=== PATIENT | male | born 1965 | race Hispanic/Latino ===

== ENCOUNTER → 2016-12-27 20:18 | Emergency (ER) | payer MEDICAID, OTHER ==
[2016-12-27 20:18] VITALS: BMI 20.9
== END | disposition left against medical advice (07) ==
LOC: C.ER 20:18
DX: R10.9 Unspecified abdominal pain (principal); Z02.9 Encounter for administrative examinations, unspecified

== ENCOUNTER 2017-01-25 14:27 | Observation (INO) | payer MEDICAID ==
[2017-01-25 14:27] VITALS: BMI 20.9
--- NOTE | 2017-01-25 15:40 | C.PDOC ---
History Of Present Illness 51 y/o male brought in by EMS presents to the ED with alcohol intoxication in public. Pt has no physical complaints at this time. Time Seen by Provider: 01/25/17 14:47 Chief Complaint (Nursing): Substance Abuse History Per: Patient Modifying Factor(s): Alcohol Severity: Mild Involuntary Hold By: None Recent travel outside of the [place]: No Past Medical History Reviewed: Historical Data, Nursing Documentation, Vital Signs - Medical History PMH: Depression, HTN - [facility] Procedures ALCOHOL DETOXIFICATION (11/09/14) DETOXIFICATION SERVICES FOR SUBSTANCE ABUSE TREATMENT (03/18/16) TETANUS TOXOID ADMINIST (10/11/13) Family History: States: Unknown Family Hx - Social History Hx Tobacco Use: Yes Hx Alcohol Use: Yes Hx Substance Use: No - Immunization History Hx Tetanus Toxoid Vaccination: No (10/11/2013) Review Of Systems Constitutional: Negative for: Fever Cardiovascular: Negative for: Chest Pain Respiratory: Negative for: Shortness of Breath Gastrointestinal: Negative for: Vomiting Neurological: Negative for: Headache Physical Exam - Physical Exam Appears: Non-toxic, No Acute Distress Skin: Warm, Dry, No Rash Head: Atraumatic, Normacephalic Nose: Normal Neck: Normal ROM, Supple Chest: Symmetrical Cardiovascular: Rhythm Regular, No Murmur Respiratory: Normal Breath Sounds, No Rales, No Rhonchi, No Wheezing Gastrointestinal/Abdominal: Soft, No Tenderness Extremity: Bilateral: Atraumatic Neurological/Psych: Oriented x3 Medical Decision Making Medical Decision Making: Pt progressively more alert At discharge steady gait Disposition - Disposition Disposition: ELOPEMENT - ER ONLY Disposition Time: 17:30 Condition: GOOD - Clinical Impression Clinical Impression: Alcohol abuse - Scribe Statement The provider has reviewed the documentation as recorded by the Krystyna Alvarez Provider Attestation: All medical record entries made by the Krystyna were at my direction and personally dictated by me. I have reviewed the chart and agree that the record accurately reflects my personal performance of the history, physical exam, medical decision making, and the department course for this patient. I have also personally directed, reviewed, and agree with the discharge instructions and disposition.
== END 2017-01-25 17:50 | disposition left against medical advice (07) ==
LOC: C.ER 14:27 → C.9OBSV 14:51
PROVIDERS: ADMIT Emergency Medicine; ATTEND Emergency Medicine
DX: F10.120 Alcohol abuse with intoxication, uncomplicated (principal); I10 Essential (primary) hypertension; Z87.891 Personal history of nicotine dependence; Y90.9 Presence of alcohol in blood, level not specified

== ENCOUNTER 2017-03-19 22:38 | Observation (INO) | payer MEDICAID ==
[2017-03-19 22:39] VITALS: BMI 20.9
--- NOTE | 2017-03-19 23:15 | C.PDOC ---
History Of Present Illness <TatianaShakeel L - Last Filed: 03/20/17 05:35> <EulaliaAntonio Rosa Maria - Last Filed: 03/20/17 13:13> Patient is a 51 year old male brought to the ER with acute ETOH intoxication. Patient admits to drinking today and denies any physical complaints at this time. (Antonio Esteban) <TatianaShakeel L - Last Filed: 03/20/17 05:35> History Per: Patient History/Exam Limitations: no limitations Onset/Duration Of Symptoms: Hrs Current Symptoms Are (Timing): Still Present Suicide/Self Injury Attempted (Context): None Modifying Factor(s): Alcohol Associated Symptoms: denies: Depression, Suicidal Thoughts, Suicidal Plan Involuntary Hold By: None Recent travel outside of the [place]: No <Antonio Esteban - Last Filed: 03/20/17 13:13> Time Seen by Provider: 03/19/17 22:40 Chief Complaint (Nursing): Substance Abuse Past Medical History <Shakeel Simpson - Last Filed: 03/20/17 05:35> Reviewed: Historical Data, Nursing Documentation, Vital Signs - Medical History PMH: Depression, HTN Surgical History: No Surg Hx Family History: States: Unknown Family Hx - Social History Hx Tobacco Use: Yes Hx Alcohol Use: Yes Hx Substance Use: No - Immunization History Hx Tetanus Toxoid Vaccination: No (10/11/2013) Hx Influenza Vaccination: No Hx Pneumococcal Vaccination: No <Antonio Esteban - Last Filed: 03/20/17 13:13> Vital Signs: Last Vital Signs Temp 97.8 F 03/20/17 05:09 Pulse 99 H 03/20/17 05:09 Resp 18 03/20/17 05:09 BP 106/72 03/20/17 05:09 Pulse Ox 97 03/20/17 05:09 - [facility] Procedures ALCOHOL DETOXIFICATION (11/09/14) DETOXIFICATION SERVICES FOR SUBSTANCE ABUSE TREATMENT (03/18/16) TETANUS TOXOID ADMINIST (10/11/13) Review Of Systems Constitutional: Negative for: Fever, Chills Gastrointestinal: Negative for: Nausea, Vomiting, Diarrhea Neurological: Positive for: Other (ETOH intoxication) <Antonio Esteban - Last Filed: 03/20/17 13:13> Physical Exam <Shakeel Simpson - Last Filed: 03/20/17 05:35> <Antonio Esteban - Last Filed: 03/20/17 13:13> - Physical Exam Additional Physical Exam Comments: Constitutional: ETOH on breath. Head: Normocephalic. Atraumatic. Eyes: PERRL. ENT: Moist mucous membranes. Neck: Supple. Cardiovascular: Regular rate. Radial pulse 2+ bilaterally. Chest: No tenderness. Respiratory: Clear to auscultation bilaterally. GI: Soft. Nontender. Nondistended. Back: No CVA tenderness. Musculoskeletal: No tenderness or swelling of extremities. Skin: No rash. Neurologic: Alert, no focal deficit. (Antonio Esteban) ED Course And Treatment O2 Sat by Pulse Oximetry: 96 <Antonio Esteban - Last Filed: 03/20/17 13:13> ED OBSERVATION Discharge: Yes <Shakeel Simpson - Last Filed: 03/20/17 05:35> Date of observation admission: 03/19/17 Time of observation admission: 23:20 <Antonio Esteban - Last Filed: 03/20/17 13:13> - Observation admission statement Patient is being placed in observation because:: alcohol intoxication (Antonio Esteban) - Goals of Observation Goals of observation are:: sobriety (Antonio Esteban) - Progress Note Progress Note: 03/19/17 23:21 In no acute distress. Ate sandwich. 03/20/17 00:32 Patient intoxicated, unsteady on feet. Will sign out to ER night team at end of shift pending sobriety. (Antonio Esteban) Disposition - Disposition Disposition Time: 05:36 <Shakeel Simpson - Last Filed: 03/20/17 05:35> <Antonio Esteban - Last Filed: 03/20/17 13:13> - Disposition Disposition: HOME/ ROUTINE Condition: FAIR - Clinical Impression Clinical Impression: Alcohol abuse <Shakeel Simpson - Last Filed: 03/20/17 05:35> - Scribe Statement The provider has reviewed the documentation as recorded by the Scribe <Antonio Esteban - Last Filed: 03/20/17 13:13> - Scribe Statement Sebastian Shearer All medical record entries made by the Scribe were at my direction and personally dictated by me. I have reviewed the chart and agree that the record accurately reflects my personal performance of the history, physical exam, medical decision making, and the department course for this patient. I have also personally directed, reviewed, and agree with the discharge instructions and disposition. (Antonio Esteban) Addendum <Shakeel Simpson - Last Filed: 03/20/17 05:35> <Antonio Esteban - Last Filed: 03/20/17 13:13> Addendum: Pt remained stable At dc Ambulatory with steady gait Stable for dc (Shakeel Simpson)
[2017-03-20 05:10] VITALS: BP 106/72; PULSE 99; RESP 18; TEMP 97.8
[2017-03-20 13:13] VITALS: O2SAT 96
== END 2017-03-20 05:36 | disposition home or self-care (01) ==
LOC: C.ER 22:38 → C.9OBSV 23:21
PROVIDERS: ADMIT Student in an Organized Health Care Education/Training Program; ATTEND Student in an Organized Health Care Education/Training Program
DX: F10.120 Alcohol abuse with intoxication, uncomplicated (principal); F32.9 Major depressive disorder, single episode, unspecified; I10 Essential (primary) hypertension; Z72.0 Tobacco use
CPT/HCPCS: 99283; G0378

== ENCOUNTER 2017-04-11 19:39 | Observation (INO) | payer MEDICAID ==
[2017-04-11 19:39] VITALS: BMI 20.9
[2017-04-11 20:04] VITALS: RESP 18; TEMP 98.2
--- NOTE | 2017-04-11 20:10 | C.PDOC ---
History Of Present Illness Patient was brought to the ED by EMS after being found sleeping outside intoxicated. Patient has EtOH on breath and denies any suicidal ideations, homicidal ideations, or physical complaints at this time. Time Seen by Provider: 04/11/17 19:53 Chief Complaint (Nursing): Substance Abuse History Per: Patient History/Exam Limitations: no limitations Onset/Duration Of Symptoms: Hrs Current Symptoms Are (Timing): Still Present Suicide/Self Injury Attempted (Context): None Severity: None Pain Scale Rating Of: 0 Associated Symptoms: denies: Suicidal Thoughts, Suicidal Plan Involuntary Hold By: None Recent travel outside of the [place]: No Additional History Per: EMS Past Medical History Reviewed: Historical Data, Nursing Documentation, Vital Signs Vital Signs: Last Vital Signs Temp 98.2 F 04/11/17 22:20 Pulse 84 04/11/17 22:20 Resp 18 04/11/17 22:20 BP 116/69 04/11/17 22:20 Pulse Ox 98 04/11/17 22:46 - Medical History PMH: Depression, HTN - [facility] Procedures ALCOHOL DETOXIFICATION (11/09/14) DETOXIFICATION SERVICES FOR SUBSTANCE ABUSE TREATMENT (03/18/16) TETANUS TOXOID ADMINIST (10/11/13) Family History: States: Unknown Family Hx - Social History Hx Tobacco Use: Yes Hx Alcohol Use: Yes Hx Substance Use: No - Immunization History Hx Tetanus Toxoid Vaccination: No (10/11/2013) Hx Influenza Vaccination: No Hx Pneumococcal Vaccination: No Review Of Systems Constitutional: Negative for: Fever, Chills Cardiovascular: Negative for: Chest Pain, Palpitations Respiratory: Negative for: Cough, Shortness of Breath Gastrointestinal: Negative for: Nausea, Vomiting, Abdominal Pain, Diarrhea Psych: Negative for: Suicidal ideation Physical Exam - Physical Exam Appears: Non-toxic, No Acute Distress Skin: Warm, Dry Head: Atraumatic Eye(s): bilateral: Normal Inspection Oral Mucosa: Moist Neck: Supple Chest: Symmetrical, No Deformity Cardiovascular: Rhythm Regular Respiratory: No Rales, No Rhonchi, No Wheezing Gastrointestinal/Abdominal: Soft, No Tenderness, No Distention, No Guarding, No Rebound Extremity: Normal ROM, No Tenderness Neurological/Psych: Oriented x3 ED Course And Treatment O2 Sat by Pulse Oximetry: 98 (room air ) ED OBSERVATION Discharge: Yes Date of observation admission: 04/11/17 Time of observation admission: 19:30 - Observation admission statement Patient is being placed in observation because:: intoxicated. - Goals of Observation Goals of observation are:: sobriety. - Progress Note Progress Note: 04/11/17 19:30 Patient is resting comfortably and is in no acute distress. Disposition Counseled Patient/Family Regarding: Studies Performed, Diagnosis - Disposition Disposition: HOME/ ROUTINE Disposition Time: 00:16 Condition: FAIR - Clinical Impression Clinical Impression: Alcohol intoxication - Scribe Statement The provider has reviewed the documentation as recorded by the Julio Cesaribchastity Jimenes All medical record entries made by the Krystyna were at my direction and personally dictated by me. I have reviewed the chart and agree that the record accurately reflects my personal performance of the history, physical exam, medical decision making, and the department course for this patient. I have also personally directed, reviewed, and agree with the discharge instructions and disposition.
[2017-04-11 22:21] VITALS: BP 116/69; PULSE 84
[2017-04-11 22:46] VITALS: O2SAT 98
== END 2017-04-12 00:16 | disposition home or self-care (01) ==
LOC: C.ER 19:39 → C.9OBSV 21:54
PROVIDERS: ADMIT Emergency Medicine; ATTEND Emergency Medicine
DX: F10.129 Alcohol abuse with intoxication, unspecified (principal); I10 Essential (primary) hypertension; Z87.891 Personal history of nicotine dependence

== ENCOUNTER 2017-04-13 11:56 | Emergency (ER) | payer MEDICAID ==
[2017-04-13 11:56] VITALS: BMI 20.9
[2017-04-13 12:06] VITALS: BP 141/95; PULSE 98; RESP 18; TEMP 98.7; O2SAT 95
--- NOTE | 2017-04-13 14:06 | C.PDOC ---
History Of Present Illness 51 y/o male BIBA for public intoxication. Denies any other known medical history or medical complaints, "I don't know why I am here". Denies headache, nausea, vomiting. Time Seen by Provider: 04/13/17 13:20 Chief Complaint (Nursing): Substance Abuse History Per: Patient History/Exam Limitations: no limitations Current Symptoms Are (Timing): Still Present Suicide/Self Injury Attempted (Context): None Modifying Factor(s): Alcohol Recent travel outside of the [place]: No Past Medical History Reviewed: Historical Data, Nursing Documentation, Vital Signs Vital Signs: Last Vital Signs Temp 98.7 F 04/13/17 12:05 Pulse 98 H 04/13/17 12:05 Resp 18 04/13/17 13:39 BP 141/95 H 04/13/17 12:05 Pulse Ox 95 04/13/17 14:06 - Medical History PMH: Depression, HTN - [facility] Procedures ALCOHOL DETOXIFICATION (11/09/14) DETOXIFICATION SERVICES FOR SUBSTANCE ABUSE TREATMENT (03/18/16) TETANUS TOXOID ADMINIST (10/11/13) Family History: States: Unknown Family Hx - Social History Hx Tobacco Use: Yes Hx Alcohol Use: Yes Hx Substance Use: No - Immunization History Hx Tetanus Toxoid Vaccination: No (10/11/2013) Hx Influenza Vaccination: No Hx Pneumococcal Vaccination: No Review Of Systems Except As Marked, All Systems Reviewed And Found Negative. Constitutional: Negative for: Fever, Chills Cardiovascular: Negative for: Chest Pain Respiratory: Negative for: Cough, Shortness of Breath Gastrointestinal: Negative for: Vomiting Skin: Negative for: Rash Neurological: Negative for: Headache, Dizziness Physical Exam - Physical Exam Appears: Non-toxic, Unkempt (dissheveled ), Other (no evidence of trauma) Skin: Warm, Dry Head: Atraumatic, Normacephalic Chest: Symmetrical Cardiovascular: Rhythm Regular Respiratory: Normal Breath Sounds, No Rales, No Rhonchi, No Wheezing Gastrointestinal/Abdominal: Soft, No Tenderness, No Guarding, No Rebound Back: Normal Inspection Extremity: Normal ROM, Capillary Refill (< 2 sec.) Extremity: Bilateral: Atraumatic Neurological/Psych: Oriented x3, Normal Speech, Normal Cognition Gait: Steady ED Course And Treatment O2 Sat by Pulse Oximetry: 95 (RA) Pulse Ox Interpretation: Normal Progress Note: Patient eloped prior to being discharged. Disposition - Disposition Disposition: ELOPEMENT - ER ONLY Disposition Time: 13:30 Condition: GOOD - POA Present On Arrival: None - Clinical Impression Clinical Impression: Alcohol intoxication - Scribe Statement The provider has reviewed the documentation as recorded by the Krystyna Waddell Provider Attestation: All medical record entries made by the Krystyna were at my direction and personally dictated by me. I have reviewed the chart and agree that the record accurately reflects my personal performance of the history, physical exam, medical decision making, and the department course for this patient. I have also personally directed, reviewed, and agree with the discharge instructions and disposition.
== END 2017-04-13 13:39 | disposition left against medical advice (07) ==
LOC: C.ER 11:56
DX: F10.120 Alcohol abuse with intoxication, uncomplicated (principal); Y90.9 Presence of alcohol in blood, level not specified

== ENCOUNTER 2017-04-13 22:14 | Observation (INO) | payer MEDICAID ==
[2017-04-13 22:14] VITALS: BMI 20.9
--- NOTE | 2017-04-13 22:22 | C.PDOC ---
History Of Present Illness Patient was brought to the ED by EMS after being found sleeping outside intoxicated. Patient has EtOH on breath and denies any suicidal ideations, homicidal ideations, or physical complaints at this time. Time Seen by Provider: 04/13/17 22:21 History Per: Patient History/Exam Limitations: no limitations Onset/Duration Of Symptoms: Hrs Current Symptoms Are (Timing): Still Present Suicide/Self Injury Attempted (Context): None Modifying Factor(s): Alcohol Severity: None Pain Scale Rating Of: 0 Associated Symptoms: denies: Depression, Suicidal Thoughts, Suicidal Plan Involuntary Hold By: None Recent travel outside of the [place]: No Past Medical History Reviewed: Historical Data, Nursing Documentation, Vital Signs Vital Signs: Last Vital Signs Temp 98.5 F 04/13/17 22:22 Pulse 79 04/14/17 03:27 Resp 18 04/14/17 03:27 BP 137/95 H 04/14/17 03:27 Pulse Ox 96 04/14/17 03:27 - Medical History PMH: Depression, HTN Surgical History: No Surg Hx - [facility] Procedures ALCOHOL DETOXIFICATION (11/09/14) DETOXIFICATION SERVICES FOR SUBSTANCE ABUSE TREATMENT (03/18/16) TETANUS TOXOID ADMINIST (10/11/13) Family History: States: No Known Family Hx - Social History Hx Tobacco Use: Yes Hx Alcohol Use: Yes Hx Substance Use: No - Immunization History Hx Tetanus Toxoid Vaccination: No (10/11/2013) Hx Influenza Vaccination: No Hx Pneumococcal Vaccination: No Review Of Systems Constitutional: Negative for: Fever, Chills Gastrointestinal: Negative for: Nausea, Vomiting Psych: Negative for: Suicidal ideation Physical Exam - Physical Exam Appears: Non-toxic, Other (ETOH on breath) Skin: Warm, Dry Oral Mucosa: Moist Chest: Symmetrical, No Tenderness Cardiovascular: Rhythm Regular, No Murmur Respiratory: No Rales, No Rhonchi, No Other Gastrointestinal/Abdominal: Soft, No Tenderness Neurological/Psych: Oriented x3 ED Course And Treatment O2 Sat by Pulse Oximetry: 96 Pulse Ox Interpretation: Normal Reevaluation Time: 05:23 Reassessment Condition: Improved ED OBSERVATION Discharge: Yes Date of observation admission: 04/13/17 Time of observation admission: 22:23 - Observation admission statement Patient is being placed in observation because:: acute alcohol intoxication - Goals of Observation Goals of observation are:: sobriety - Progress Note Progress Note: 04/13/17 22:24 vitals stable 04/14/17 01:26 arousable, no complaints Disposition Counseled Patient/Family Regarding: Studies Performed, Diagnosis, Need For Followup - Disposition Disposition: HOME/ ROUTINE Disposition Time: 22:22 Condition: FAIR - Clinical Impression Clinical Impression: Alcohol intoxication, Abrasion of scalp - Scribe Statement The provider has reviewed the documentation as recorded by the Scribchastity Shearer All medical record entries made by the Julio Cesaribchastity were at my direction and personally dictated by me. I have reviewed the chart and agree that the record accurately reflects my personal performance of the history, physical exam, medical decision making, and the department course for this patient. I have also personally directed, reviewed, and agree with the discharge instructions and disposition.
[2017-04-13 22:25] VITALS: TEMP 98.5
--- NOTE | 2017-04-13 23:51 | CT ---
EXAM: CT Head Without Intravenous Contrast CLINICAL HISTORY: 51 years old, male; Injury or trauma; Fall; Initial encounter; Abrasion; Head, generalized TECHNIQUE: Axial computed tomography images of the head/brain without intravenous contrast. This CT exam was performed using one or more of the following dose reduction techniques: automated exposure control, adjustment of the mA and/or kV according to patient size, and/or use of iterative reconstruction technique. Coronal and sagittal reformatted images were created and reviewed. COMPARISON: No relevant prior studies available. FINDINGS: Brain: There is moderate prominence of ventricles and sulci, compatible with moderate atrophy. There is no evidence of intracranial hemorrhage. No evidence of acute territorial infarction. There is mild diminished density of the white matter bilaterally, nonspecific in this age group although consistent with mild microangiopathy. No edema. Ventricles: See above. Bones/joints: Unremarkable. No acute fracture. Soft tissues: Unremarkable. Sinuses: Unremarkable as visualized. No acute sinusitis. Mastoid air cells: Unremarkable as visualized. No mastoid effusion. IMPRESSION: 1. No evidence for acute intracranial abnormality or displaced calvarial fracture. 2. Additional incidental and/or chronic findings as described.
[2017-04-14 03:28] VITALS: BP 137/95; PULSE 79; RESP 18; O2SAT 96
== END 2017-04-14 05:24 | disposition home or self-care (01) ==
LOC: C.ER 22:14 → C.9OBSV 23:09
PROVIDERS: ADMIT Emergency Medicine; ATTEND Emergency Medicine
DX: F10.129 Alcohol abuse with intoxication, unspecified (principal); S00.01XA Abrasion of scalp, initial encounter; Z87.891 Personal history of nicotine dependence; I10 Essential (primary) hypertension; W19.XXXA Unspecified fall, initial encounter; Y90.9 Presence of alcohol in blood, level not specified
CPT/HCPCS: 70450; 82948; G0378

== ENCOUNTER 2017-10-07 14:55 | Emergency (ER) | payer SELFPAY ==
[2017-10-07 14:55] VITALS: BMI 20.9
--- NOTE | 2017-10-07 15:27 | C.PDOC ---
History Of Present Illness 52 y/o M BIBEMS with head injury. Patient states he drank alcohol today. Reports pain to back of head but no severe pain. Also complains of pain in the R upper forehead/uatsdin. Denies nausea, vomiting, vision changes, LOC, numbness , or weakness. Patient states had tetanus shot about 2 years ago. Chart review shows tetanus administered here in 2013. Time Seen by Provider: 10/07/17 15:12 Chief Complaint (Nursing): Substance Abuse Past Medical History Vital Signs: Last Vital Signs Temp 96.9 F L 10/07/17 15:02 Pulse 96 H 10/07/17 15:02 Resp 17 10/07/17 15:02 BP Pulse Ox - Medical History PMH: Depression, HTN Denies: Chronic Kidney Disease - [facility] Procedures ALCOHOL DETOXIFICATION (11/09/14) DETOXIFICATION SERVICES FOR SUBSTANCE ABUSE TREATMENT (03/18/16) TETANUS TOXOID ADMINIST (10/11/13) Family History: States: Unknown Family Hx - Social History Hx Tobacco Use: Yes Hx Alcohol Use: Yes Hx Substance Use: No - Immunization History Hx Tetanus Toxoid Vaccination: No (10/11/2013) Hx Influenza Vaccination: No Hx Pneumococcal Vaccination: No Review Of Systems Except As Marked, All Systems Reviewed And Found Negative. Constitutional: Negative for: Fever Cardiovascular: Negative for: Chest Pain Physical Exam - Physical Exam Additional Physical Exam Comments: Constitutional: No acute distress. Head: Normocephalic. Atraumatic. Tenderness to R cheek without laceration or ecchymosis. R parietal scalp hematoma with abrasion overlying without laceration. Eyes: PERRL. ENT: Moist mucous membranes. Neck: Supple. No midline tenderness. Cardiovascular: Regular rate. Radial pulse 2+ bilaterally. Chest: No tenderness. Respiratory: Clear to auscultation bilaterally. GI: Soft. Nontender. Nondistended. Back: No CVA tenderness. No midline tenderness. Musculoskeletal: No tenderness or swelling of extremities. FROM x 4. Skin: No rash. Neurologic: Alert, no focal deficit. EOMI. Denies diplopia. Sensation to light touch intact bilaterally. Denies malocclusion of jaw. Medical Decision Making Medical Decision Making: CT Orbits IMPRESSION: Right tripod fracture with comminuted fractures of the anterior and posterior cruz of the right maxillary sinus and of the right inferior orbital rim as well as comminuted fracture of the right zygomatic arch and mild diastases of the right zygomatic O frontal suture. No intraorbital hemorrhage. CT Head IMPRESSION: Right scalp hematoma and small subcutaneous emphysema. No acute intracranial pathology identified. Incidental findings as above. Patient awake, alert, steady gait, asking to eat. Discussed case with Dr. Garcia working with Dr. Hill with OM[facility] at [facility]. Gave CT report finding, recommends follow up in Oral Facial Surgery clinic at [facility] on Tuesday or Tuesday as walk in. Gave address and CD of images to bring. Disposition - Disposition Disposition: HOME/ ROUTINE Disposition Time: 17:20 Condition: STABLE Additional Instructions: You need to go to the [facility] Clinic which is in [facility]. You should walk into the clinic with your CD with your CT pictures on them. Go there on Tuesday, October 11, or October 12. [facility] [address] 8am to 4pm Instructions: Facial Fracture (ED) Forms: [facility] (Irish) - Clinical Impression Clinical Impression: Facial bones, closed fracture, Facial fracture due to fall
--- NOTE | 2017-10-07 16:06 | CT ---
PROCEDURE: CT HEAD WITHOUT CONTRAST. HISTORY: fall, head injury COMPARISON: Noncontrast head CT performed 04/13/17 TECHNIQUE: Axial computed tomography images were obtained through the head/brain without intravenous contrast. Radiation dose: Total exam DLP = 982.82 mGy-cm. This CT exam was performed using one or more of the following dose reduction techniques: Automated exposure control, adjustment of the mA and/or kV according to patient size, and/or use of iterative reconstruction technique. FINDINGS: HEMORRHAGE: No intracranial hemorrhage. BRAIN: Diffuse atrophy with prominence of the ventricles and sulci noted. No mass effect or edema. Scattered periventricular and subcortical white matter hypodensities, which are nonspecific, but often seen with chronic microvascular ischemic disease. Please note that MRI with diffusion imaging is more sensitive in the detection of acute ischemic event. VENTRICLES: No hydrocephalus. CALVARIUM: Unremarkable. PARANASAL SINUSES: Unremarkable as visualized. No significant inflammatory changes. MASTOID AIR CELLS: Unremarkable as visualized. No inflammatory changes. OTHER FINDINGS: Right scalp hematoma and small subcutaneous emphysema. IMPRESSION: Right scalp hematoma and small subcutaneous emphysema. No acute intracranial pathology identified. Incidental findings as above.
--- NOTE | 2017-10-07 16:35 | CT ---
PROCEDURE: CT MAXILLOFACIAL BONES WITHOUT CONTRAST HISTORY: fall, facial pain COMPARISON: None TECHNIQUE: Contiguous axial CT images of the maxillofacial bones were obtained. Coronal and sagittal reformats were generated. Radiation dose: Total exam DLP = 740.44 mGy-cm. This CT exam was performed using one or more of the following dose reduction techniques: Automated exposure control, adjustment of the mA and/or kV according to patient size, and/or use of iterative reconstruction technique. Total exam DLP = 740.44 mGy-cm. FINDINGS: NASAL BONES: Unremarkable. ORBITS: Fracture of the right inferior orbital rim, comminuted. Fracture anterior and posterior cruz of the right maxillary sinus. Both fractures are comminuted and displaced. There is minimal diastases of the right zygomatic O frontal suture. There is multifocal fracture of the right zygomatic arch. The globes are rounded and symmetric. There is no intraorbital hemorrhage. The optic nerves are symmetric. The extraocular muscles are normal in diameter. PARANASAL SINUSES/ MASTOIDS: Mucosal thickening along lateral wall of right maxillary sinus. MAXILLA: As above MANDIBLE/ TEMPOROMANDIBULAR JOINTS: Unremarkable. SKULL BASE: Unremarkable. TEMPORAL BONES: Middle ears and mastoid grossly unremarkable. OTHER FINDINGS: None. IMPRESSION: Right tripod fracture with comminuted fractures of the anterior and posterior cruz of the right maxillary sinus and of the right inferior orbital rim as well as comminuted fracture of the right zygomatic arch and mild diastases of the right zygomatic O frontal suture. No intraorbital hemorrhage.
[2017-10-07 18:29] VITALS: BP 99/64; PULSE 107; RESP 20; TEMP 98; O2SAT 96
== END 2017-10-07 18:54 | disposition home or self-care (01) ==
LOC: C.ER 14:55
DX: S02.81XA Fracture of other specified skull and facial bones, right side, initial encounter for closed fracture (principal); W18.30XA Fall on same level, unspecified, initial encounter

== ENCOUNTER 2018-03-25 16:17 | Emergency (ER) | payer SELFPAY ==
[2018-03-25 16:17] VITALS: BMI 20.9
[2018-03-25 16:26] VITALS: BP 124/74; PULSE 108; RESP 18; TEMP 98.6; O2SAT 97
--- NOTE | 2018-03-25 17:06 | C.PDOC ---
History Of Present Illness 52 year old male is brought to the ED by EMS for evaluation of public alcohol intoxication for an unknown duration. Patient admits to drinking earlier today. He denies using any other substances and has no complaints at this time. Time Seen by Provider: 03/25/18 16:37 Chief Complaint (Nursing): Substance Abuse History Per: Patient, EMS History/Exam Limitations: intoxication Onset/Duration Of Symptoms: Hrs Current Symptoms Are (Timing): Still Present Suicide/Self Injury Attempted (Context): None Modifying Factor(s): Alcohol Involuntary Hold By: None Recent travel outside of the [place]: No Additional History Per: Patient, EMS Past Medical History Reviewed: Historical Data, Nursing Documentation, Vital Signs Vital Signs: Last Vital Signs Temp 98.6 F 03/25/18 16:22 Pulse 108 H 03/25/18 16:22 Resp 18 03/25/18 16:22 BP 124/74 03/25/18 16:22 Pulse Ox 97 03/25/18 17:11 - Medical History PMH: Depression, HTN Denies: Chronic Kidney Disease Surgical History: No Surg Hx - [facility] Procedures ALCOHOL DETOXIFICATION (11/09/14) DETOXIFICATION SERVICES FOR SUBSTANCE ABUSE TREATMENT (03/18/16) TETANUS TOXOID ADMINIST (10/11/13) Family History: States: Unknown Family Hx - Social History Hx Tobacco Use: Yes Hx Alcohol Use: Yes Hx Substance Use: No - Immunization History Hx Tetanus Toxoid Vaccination: No (10/11/2013) Hx Influenza Vaccination: No Hx Pneumococcal Vaccination: No Review Of Systems Psych: Positive for: Other (EtOH intoxication ) Physical Exam - Physical Exam Appears: Non-toxic, No Acute Distress, Other (visibly intoxicated ) Skin: Normal Color, Warm, Dry, No Other (obvious signs of injury/trauma ) Head: Atraumatic, Normacephalic Eye(s): bilateral: Normal Inspection Oral Mucosa: Moist, Other (alcohol on breath ) Neck: Supple Chest: Symmetrical, No Deformity, No Tenderness Cardiovascular: Rhythm Regular Respiratory: Normal Breath Sounds, No Rales, No Rhonchi, No Wheezing Extremity: Normal ROM, Capillary Refill (less than 2 seconds ) Neurological/Psych: Other (awake, alert, and arousable to touch and verbal stimuli ) ED Course And Treatment O2 Sat by Pulse Oximetry: 97 (on RA) Pulse Ox Interpretation: Normal Medical Decision Making Medical Decision Making: Impression: 52 year old male with alcohol intoxication Progress: Patient observed in ED. He was ambulatory to restroom and then started to smoke in bathroom. Patient escorted out of building. He was alert and oriented and able to ambulate on his own. 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 - Scribe Statement The provider has reviewed the documentation as recorded by the Scribe (Elizabeth Mendieta) All medical record entries made by the Scribe were at my direction and personally dictated by me. I have reviewed the chart and agree that the record accurately reflects my personal performance of the history, physical exam, medical decision making, and the department course for this patient. I have also personally directed, reviewed, and agree with the discharge instructions and disposition.
== END 2018-03-25 17:11 | disposition home or self-care (01) ==
LOC: C.ER 16:17
DX: F10.129 Alcohol abuse with intoxication, unspecified (principal); Y90.9 Presence of alcohol in blood, level not specified

== ENCOUNTER 2018-04-13 00:54 | Emergency (ER) | payer SELFPAY ==
[2018-04-13 00:54] VITALS: BMI 20.9
--- NOTE | 2018-04-13 01:06 | C.PDOC ---
History Of Present Illness Patient brought in via EMS after bring found intoxicated in public. Denies physical complaints at this time. Time Seen by Provider: 04/13/18 01:05 History Per: Patient History/Exam Limitations: no limitations Onset/Duration Of Symptoms: Hrs Current Symptoms Are (Timing): Still Present Suicide/Self Injury Attempted (Context): None Modifying Factor(s): Alcohol Severity: None Pain Scale Rating Of: 0 Associated Symptoms: denies: Depression, Suicidal Thoughts Involuntary Hold By: None Recent travel outside of the [place]: No Past Medical History Reviewed: Historical Data, Nursing Documentation, Vital Signs Vital Signs: Last Vital Signs Temp 97.6 F 04/13/18 01:06 Pulse 81 04/13/18 01:06 Resp 20 04/13/18 01:06 BP 159/98 H 04/13/18 01:06 Pulse Ox 99 04/13/18 01:06 - Medical History PMH: Depression, HTN - [facility] Procedures ALCOHOL DETOXIFICATION (11/09/14) DETOXIFICATION SERVICES FOR SUBSTANCE ABUSE TREATMENT (03/18/16) TETANUS TOXOID ADMINIST (10/11/13) Family History: States: No Known Family Hx - Social History Hx Tobacco Use: Yes Hx Alcohol Use: Yes Hx Substance Use: No - Immunization History Hx Tetanus Toxoid Vaccination: No (10/11/2013) Hx Influenza Vaccination: No Hx Pneumococcal Vaccination: No Review Of Systems Constitutional: Negative for: Fever, Chills Cardiovascular: Negative for: Chest Pain, Palpitations Respiratory: Negative for: Cough, Shortness of Breath Gastrointestinal: Negative for: Nausea, Vomiting Physical Exam - Physical Exam Appears: Non-toxic, Other (ETOH on breath, no sign of injury) Skin: Warm, Dry Head: Normacephalic Oral Mucosa: Moist Chest: Symmetrical, No Tenderness Cardiovascular: Rhythm Regular Respiratory: No Rales, No Rhonchi, No Wheezing Gastrointestinal/Abdominal: Soft, No Tenderness Neurological/Psych: Oriented x3 ED Course And Treatment O2 Sat by Pulse Oximetry: 99 Pulse Ox Interpretation: Normal Disposition Counseled Patient/Family Regarding: Studies Performed, Diagnosis, Need For Followup - Disposition Referrals: [facility] [Outside] Disposition: HOME/ ROUTINE Disposition Time: 01:05 Condition: FAIR Instructions: Alcohol Abuse and Alcoholism (DC) - Clinical Impression Clinical Impression: Alcohol intoxication - Scribe Statement The provider has reviewed the documentation as recorded by the Scribe Sebastian Shearer All medical record entries made by the Julio Cesaribchastity were at my direction and personally dictated by me. I have reviewed the chart and agree that the record accurately reflects my personal performance of the history, physical exam, medical decision making, and the department course for this patient. I have also personally directed, reviewed, and agree with the discharge instructions and disposition.
[2018-04-13 01:09] VITALS: TEMP 97.6; O2SAT 99
[2018-04-13 05:57] VITALS: BP 130/80; PULSE 80; RESP 14
== END 2018-04-13 05:58 | disposition home or self-care (01) ==
LOC: C.ER 00:54
DX: F10.129 Alcohol abuse with intoxication, unspecified (principal)

== ENCOUNTER 2018-08-02 20:56 | Emergency (ER) | payer SELFPAY ==
[2018-08-02 20:56] VITALS: BMI 20.9
[2018-08-02 21:02] VITALS: TEMP 97.5
[2018-08-02] MEDS ORDERED: Folic Acid 1 MG, Thiamine 100 MG, Multivitamin (MVI) 10 ML in Dextrose 5% In Water 1,00... IV ONE (21:19)
--- NOTE | 2018-08-02 21:25 | C.PDOC ---
Addendum entered and electronically signed by Alicia Mckeon MD 08/03/18 05:25: Disposition Counseled Patient/Family Regarding: Studies Performed, Diagnosis, Need For Followup Clinical Impression: Alcohol intoxication Disposition: HOME/ ROUTINE Disposition Time: 00:45 Condition: FAIR Referrals: [facility] [Outside] Stand Alone Forms: [employer] (Ivorian) Addendum entered and electronically signed by Alicia Mckeon MD 08/03/18 01:27: Addendum Addendum: 08/03/18 01:26 pt although saturating in the 98-100% has been having pink froth via his mouth. He does seem to be more awake and alert, but off oxygen desats to the low 80's . Repeat cxr and labs ordered Original Note: History Of Present Illness 53 year old male presents to the ED via EMS after being found intoxicated on the street. Patient is unresponsive to verbal and painful stimuli. Time Seen by Provider: 08/02/18 21:03 Chief Complaint (Nursing): Substance Abuse History Per: EMS History/Exam Limitations: intoxication Past Medical History Reviewed: Historical Data, Nursing Documentation, Vital Signs Vital Signs: Last Vital Signs Temp 97.5 F L 08/02/18 20:58 Pulse 109 H 08/02/18 20:58 Resp 16 08/02/18 20:58 BP 165/101 H 08/02/18 20:58 Pulse Ox 97 08/02/18 20:58 - Medical History PMH: Depression, HTN Denies: Chronic Kidney Disease - [facility] Procedures ALCOHOL DETOXIFICATION (11/09/14) DETOXIFICATION SERVICES FOR SUBSTANCE ABUSE TREATMENT (03/18/16) TETANUS TOXOID ADMINIST (10/11/13) Family History: States: Unknown Family Hx - Social History Hx Tobacco Use: Yes Hx Alcohol Use: Yes Hx Substance Use: No - Immunization History Hx Tetanus Toxoid Vaccination: No (10/11/2013) Hx Influenza Vaccination: No Hx Pneumococcal Vaccination: No Review Of Systems Review Of Systems: ROS cannot be obtained secondary to pt's inabilty to answer questions. (intoxication.) Physical Exam - Physical Exam Appears: Other (snoring. not posturing.) Skin: Warm, Dry Head: Atraumatic, Normacephalic Eye(s): bilateral: Normal Inspection, PERRL Oral Mucosa: Moist Cardiovascular: Rhythm Regular Respiratory: Normal Breath Sounds, Other (respiration rate is normal. ) Extremity: Bilateral: Atraumatic Neurological/Psych: No Response To Commands, Other (unresponsive to verbal or p ainful stimuli. ) Pain Response: No Response To Pain ED Course And Treatment - Laboratory Results Result Diagrams: 08/02/18 21:27 08/02/18 21:27 Lab Interpretation: Abnormal (ETOH 507) O2 Sat by Pulse Oximetry: 97 (RA) Pulse Ox Interpretation: Normal Progress Note: Patient treated with IV fluids and vitamins. Reevaluation Time: 00:14 Reassessment Condition: Improved (Patient now responsive to painful stimuli and does groan in response to name calling.) Medical Decision Making Medical Decision Making: Plan: -Blood sent. -Glucose POC. Dextrose Folic acid MVI Disposition - Disposition Disposition Time: 00:45 Condition: IMPROVED Forms: [facility] (Ivorian) - Clinical Impression Clinical Impression: Alcohol intoxication - Scribe Statement The provider has reviewed the documentation as recorded by the Scribe (Silvia Berg) Provider Attestation: All medical record entries made by the Scribe were at my direction and personally dictated by me. I have reviewed the chart and agree that the record accurately reflects my personal performance of the history, physical exam, medical decision making, and the department course for this patient. I have also personally directed, reviewed, and agree with the discharge instructions and disposition. Physician Patient Turnover Patient Signed Over To: Alicia Mckeon Handoff Comments: pending CT results and sobriety
[2018-08-02 21:35] LABS: BASO % 0.2 % (0.0-2.0); EOS # 0.2 K/uL (0.0-0.7); EOS % 1.3 % (0.0-4.0); HEMOGLOBIN 15.8 g/dL (12.0-18.0); LYMPH # 2.5 K/uL (1.0-4.3); LYMPH % 20.9 % (20.0-40.0); MEAN CELL VOLUME 100.5 fL (80.0-94.0); MEAN CORPUSCULAR HEMOGLOBIN 35.1 pg (27.0-31.0); MEAN PLATELET VOLUME 6.6 fL (7.2-11.7); MONO # 0.9 K/uL (0.0-0.8); MONO % 7.5 % (0.0-10.0); NEUT # 8.5 K/uL (1.8-7.0); NEUT % 70.1 % (50.0-75.0); NRBC % 0.1 % (0.0-2.0); RBC 4.49 Mil/uL (4.40-5.90); RED CELL DISTRIBUTION WIDTH 13.8 % (11.5-14.5); WHITE BLOOD COUNT 12.1 K/uL (4.8-10.8)
[2018-08-02 21:44] LABS: ALB/GLOB RATIO 1.4 (1.0-2.1); ALBUMIN 4.7 g/dL (3.5-5.0); BLOOD UREA NITROGEN 9 mg/dL (9-20); GFR NON-AFRICAN AMERICAN > 60
[2018-08-02 21:49] LABS: ALT/SGPT 28 U/L (21-72); AST/SGOT 36 U/L (17-59)
[2018-08-03 01:46] LABS: PROTHROMBIN TIME 11.4 SECONDS (9.7-12.2)
[2018-08-03 02:17] LABS: B-TYPE NATRIURETIC PEPTIDE 80.2 pg/mL (0-900)
[2018-08-03 02:32] LABS: ALB/GLOB RATIO 1.4 (1.0-2.1); ALBUMIN 4.2 g/dL (3.5-5.0); ALT/SGPT 26 U/L (21-72); AST/SGOT 29 U/L (17-59); BLOOD UREA NITROGEN 7 mg/dL (9-20); GFR NON-AFRICAN AMERICAN > 60
[2018-08-03 03:28] VITALS: O2SAT 97
[2018-08-03 05:38] VITALS: BP 132/76; PULSE 101; RESP 18
--- NOTE | 2018-08-03 08:34 | RAD ---
Date of service: 08/03/2018 PROCEDURE: CHEST RADIOGRAPH, 1 VIEW HISTORY: respiratory distress COMPARISON: None available. FINDINGS: LUNGS: Linear vertical subsegmental atelectasis and/or fibrotic scarring medial right lung base noted. Limited visualization of the left retrocardiac anatomy. Here asymmetrical elevation of left hemidiaphragm. Left cuff costophrenic angle partially blunted-chronicity unknown. Some pleural parenchymal pathology here suspect. PLEURA: No pneumothorax or pleural fluid seen. CARDIOVASCULAR: There is absence of aortic atherosclerotic calcification on x-ray. Minimal cardiomegaly. No cindi pulmonary vascular congestion OSSEOUS STRUCTURES: Old healed rib deformities left mid and upper rib segments. VISUALIZED UPPER ABDOMEN: Normal. OTHER FINDINGS: None. IMPRESSION: Medial right lung base subsegmental discoid atelectasis and/or fibrosis. Partially blunted left costophrenic angle-compatible with some mild pleural parenchymal pathology here. Chronicity of both unknown
--- NOTE | 2018-08-03 09:15 | CT ---
Date of service: 08/03/2018 PROCEDURE: CT HEAD WITHOUT CONTRAST. HISTORY: altered mental status COMPARISON: 10/07/2017 TECHNIQUE: Axial computed tomography images were obtained through the head/brain without intravenous contrast. Radiation dose: Total exam DLP = 1263.57 mGy-cm. This CT exam was performed using one or more of the following dose reduction techniques: Automated exposure control, adjustment of the mA and/or kV according to patient size, and/or use of iterative reconstruction technique. FINDINGS: HEMORRHAGE: Evaluation limited due to patient motion artifact. This particularly obscures the posterior fossa region. BRAIN: No mass effect or edema. Mild diffuse atrophy slightly greater than expected for patient age. No evidence of white matter ischemic change. No evidence of acute infarct. VENTRICLES: Unremarkable. No hydrocephalus. CALVARIUM: Unremarkable. PARANASAL SINUSES: Mild chronic pansinusitis MASTOID AIR CELLS: Unremarkable as visualized. No inflammatory changes. OTHER FINDINGS: None. IMPRESSION: Mild chronic pansinusitis. Mild atrophy slightly greater than expected for patient age. No intracranial hemorrhage or evidence of acute infarct. The preliminary findings for this examination were reported by [facility] at 1:13 a.m. on 08/03/2018. There is concurrence of this report with the preliminary findings.
--- NOTE | 2018-08-07 18:21 | CARD ---
APPROVED REPORT Date of service: 08/03/2018 EKG Measurement Heart [id number] ND [id number] [id number] <Conclusion> Sinus tachycardia Incomplete right bundle branch block Poor R wave progression - Cannot rule out Anterior infarct, age undetermine Please repeat Abnormal ECG
== END 2018-08-03 06:06 | disposition home or self-care (01) ==
LOC: C.ER 20:56
DX: F10.129 Alcohol abuse with intoxication, unspecified (principal); Y90.8 Blood alcohol level of 240 mg/100 ml or more
CPT/HCPCS: 70450; 71045; 80053; 82948; 83735; 83880; 84484; 85025; 85610; 85730; 93005; 94770; 96374; 99284; G0480; J3411; J7070

== ENCOUNTER 2018-10-14 15:43 | Emergency (ER) | payer SELFPAY ==
[2018-10-14 15:43] VITALS: BMI 20.9
[2018-10-14 16:01] VITALS: BP 130/85; PULSE 93; RESP 20; TEMP 98.5; O2SAT 97
== END 2018-10-14 16:10 | disposition left against medical advice (07) ==
LOC: C.ER 15:43
DX: Z02.89 Encounter for other administrative examinations (principal); F19.10 Other psychoactive substance abuse, uncomplicated

== ENCOUNTER 2018-10-21 15:02 | Emergency (ER) | payer SELFPAY ==
[2018-10-21 15:03] VITALS: BMI 20.9
[2018-10-21 15:06] VITALS: RESP 18; TEMP 98; O2SAT 98
--- NOTE | 2018-10-21 15:40 | C.PDOC ---
History Of Present Illness Patient was seen by . I was not involved in the care of this patient. <Angelica Ledesma - Last Filed: 10/21/18 16:48> 53 y/o male, local homeless alcoholic, is brought in by ambulance for alcohol intoxication. Evaluation is difficult as patient is argumentative and confrontational. Patient has no physical complaints. <Tony Mckeon - Last Filed: 10/21/18 17:34> <Angelica Ledesma - Last Filed: 10/21/18 16:48> History Per: Patient History/Exam Limitations: no limitations Onset/Duration Of Symptoms: Days Current Symptoms Are (Timing): Still Present <Tony Mckeon - Last Filed: 10/21/18 17:34> Time Seen by Provider: 10/21/18 15:08 Chief Complaint (Nursing): Substance Abuse Past Medical History Vital Signs: Last Vital Signs Temp 98 F 10/21/18 15:48 Pulse 76 10/21/18 15:48 Resp 18 10/21/18 15:48 BP 136/79 10/21/18 15:48 Pulse Ox 98 10/21/18 15:48 - [facility] Procedures ALCOHOL DETOXIFICATION (11/09/14) DETOXIFICATION SERVICES FOR SUBSTANCE ABUSE TREATMENT (03/18/16) TETANUS TOXOID ADMINIST (10/11/13) <Angelica Ledesma - Last Filed: 10/21/18 16:48> Reviewed: Historical Data, Nursing Documentation, Vital Signs Vital Signs: Last Vital Signs Temp 98 F 10/21/18 15:04 Pulse 78 10/21/18 15:04 Resp 18 10/21/18 15:04 BP 126/73 10/21/18 15:04 Pulse Ox 98 10/21/18 15:04 - Medical History PMH: Depression, HTN Denies: Chronic Kidney Disease - [facility] Procedures ALCOHOL DETOXIFICATION (11/09/14) DETOXIFICATION SERVICES FOR SUBSTANCE ABUSE TREATMENT (03/18/16) TETANUS TOXOID ADMINIST (10/11/13) Family History: States: No Known Family Hx - Social History Hx Tobacco Use: Yes Hx Alcohol Use: Yes Hx Substance Use: No - Immunization History Hx Tetanus Toxoid Vaccination: No (10/11/2013) Hx Influenza Vaccination: No Hx Pneumococcal Vaccination: No <Tony Mckeon - Last Filed: 10/21/18 17:34> Review Of Systems Except As Marked, All Systems Reviewed And Found Negative. Constitutional: Negative for: Fever, Chills Cardiovascular: Negative for: Chest Pain Respiratory: Negative for: Shortness of Breath Gastrointestinal: Negative for: Vomiting Skin: Negative for: Rash Psych: Positive for: Other (Alcohol intoxication) <Tony Mckeon - Last Filed: 10/21/18 17:34> Physical Exam - Physical Exam Appears: Non-toxic, No Acute Distress, Other (alcohol on breath) Skin: Warm, Dry Head: Atraumatic, Normacephalic Eye(s): bilateral: Normal Inspection Oral Mucosa: Moist Neck: Supple Chest: Symmetrical Cardiovascular: Rhythm Regular, No Murmur Respiratory: Normal Breath Sounds, No Rales, No Rhonchi, No Wheezing Gastrointestinal/Abdominal: Soft, No Tenderness Extremity: Bilateral: Atraumatic, Normal Color And Temperature, Normal ROM Neurological/Psych: Oriented x3, Normal Speech, Other (Awake and alert) Gait: Steady <Tony Mckeon - Last Filed: 10/21/18 17:34> ED Course And Treatment O2 Sat by Pulse Oximetry: 98 (RA) Pulse Ox Interpretation: Normal <Tony Mckeon - Last Filed: 10/21/18 17:34> Medical Decision Making Medical Decision Making: Plan: --Labs alcohol abuse stable gait wants d/c understands to direct to Retirement due to cold weather <Tony Mckeon - Last Filed: 10/21/18 17:34> Disposition <Angelica Ledesma - Last Filed: 10/21/18 16:48> Doctor Will See Patient In The: Office Counseled Patient/Family Regarding: Studies Performed, Diagnosis - Disposition Disposition Time: 15:40 <Tony Mckeon Last Filed: 10/21/18 17:34> - Disposition Referrals: Alcoholics Anonymous [Outside] [employer] [facility] [Outside] [facility] [Outside] [place] [facility] [Outside] [facility] [Outside] [facility] [Outside] Disposition: HOME/ ROUTINE Condition: GOOD Additional Instructions: seek AA Seek nightly group home placement Instructions: Alcohol Abuse and Alcoholism (DC) Forms: [employer] (Argentine) - Clinical Impression Clinical Impression: Alcohol abuse - 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 - Scribe Statement The provider has reviewed the documentation as recorded by the Scribe Christy Hills All medical record entries made by the Scribe were at my direction and personally dictated by me. I have reviewed the chart and agree that the record accurately reflects my personal performance of the history, physical exam, medical decision making, and the department course for this patient. I have also personally directed, reviewed, and agree with the discharge instructions and disposition. <Tony Mckeon - Last Filed: 10/21/18 17:34>
[2018-10-21 15:49] VITALS: BP 136/79; PULSE 76
== END 2018-10-21 15:48 | disposition home or self-care (01) ==
LOC: C.ER 15:02
DX: F10.10 Alcohol abuse, uncomplicated (principal); Y90.9 Presence of alcohol in blood, level not specified

== ENCOUNTER 2018-11-17 14:41 | Emergency (ER) | payer SELFPAY ==
[2018-11-17 15:13] VITALS: BMI 27.4
[2018-11-17 15:20] VITALS: BP 146/97; PULSE 105; RESP 18; TEMP 98.5; O2SAT 100
--- NOTE | 2018-11-17 16:13 | C.PDOC ---
History Of Present Illness 53 y/o male brought in by ambulance for public intoxication. Patient admits to drinking vodka today several hours ago. On arrival he presents with clear speech, answering questions appropriately. Patient states he was sitting outside and was forced to come in. He denies having any pain or recent injury. Otherwise he denies any SI or HI. No evidence of trauma. Time Seen by Provider: 11/17/18 15:31 Chief Complaint (Nursing): Substance Abuse History Per: Patient History/Exam Limitations: no limitations Onset/Duration Of Symptoms: Hrs Current Symptoms Are (Timing): Still Present Suicide/Self Injury Attempted (Context): None Modifying Factor(s): Alcohol Pain Scale Rating Of: 0 Associated Symptoms: denies: Suicidal Thoughts, Suicidal Plan Involuntary Hold By: None Recent travel outside of the [place]: No Past Medical History Reviewed: Historical Data, Nursing Documentation, Vital Signs Vital Signs: Last Vital Signs Temp 98.5 F 11/17/18 15:13 Pulse 105 H 11/17/18 15:13 Resp 18 11/17/18 15:13 BP 146/97 H 11/17/18 15:13 Pulse Ox 100 11/17/18 15:13 - Medical History PMH: Depression, HTN Denies: Chronic Kidney Disease - [facility] Procedures ALCOHOL DETOXIFICATION (11/09/14) DETOXIFICATION SERVICES FOR SUBSTANCE ABUSE TREATMENT (03/18/16) TETANUS TOXOID ADMINIST (10/11/13) Family History: States: Unknown Family Hx - Social History Hx Tobacco Use: Yes Hx Alcohol Use: Yes Hx Substance Use: No - Immunization History Hx Tetanus Toxoid Vaccination: No (10/11/2013) Hx Influenza Vaccination: No Hx Pneumococcal Vaccination: No Review Of Systems Constitutional: Negative for: Fever, Weakness, Weight loss Eyes: Negative for: Eyelid Inflammation, Redness ENT: Negative for: Ear Pain Cardiovascular: Negative for: Chest Pain Respiratory: Negative for: Cough, Shortness of Breath, SOB with Excertion Gastrointestinal: Negative for: Nausea, Vomiting, Abdominal Pain, Diarrhea Genitourinary: Negative for: Dysuria, Frequency Musculoskeletal: Negative for: Neck Pain, Leg Pain Skin: Negative for: Rash, Bruising Neurological: Negative for: Weakness Psych: Positive for: Other (ETOH intoxication). Negative for: Suicidal ideation Physical Exam - Physical Exam Appears: Non-toxic, No Acute Distress Skin: Warm, Dry, No Rash, No Jaundice, No Ecchymosis Head: Atraumatic, Normacephalic Eye(s): bilateral: Normal Inspection, PERRL, EOMI Nose: Normal, No Discharge Oral Mucosa: Moist Tongue: Normal Appearing Lips: Normal Appearing Throat: No Erythema, No Exudate Neck: Normal ROM, No Midline Cervical Tenderness, No Paracervical Tenderness, Supple Chest: Symmetrical Cardiovascular: Rhythm Regular, No Friction Rub, No Murmur Respiratory: Normal Breath Sounds, No Accessory Muscle Use, No Rales, No Rhonchi, No Stridor, Other (No respiratory distress) Gastrointestinal/Abdominal: Soft, No Tenderness, No Distention Back: Normal Inspection, No CVA Tenderness, No Vertebral Tenderness, No Paraspinal Tenderness Extremity: Normal ROM, No Tenderness, No Swelling Extremity: Bilateral: Atraumatic, Normal ROM Pulses: Left Dorsalis Pedis: Normal, Right Dorsalis Pedis: Normal Neurological/Psych: Oriented x3, Normal Speech, Normal Motor Gait: Steady ED Course And Treatment O2 Sat by Pulse Oximetry: 100 (RA) Pulse Ox Interpretation: Normal Medical Decision Making Medical Decision Making: FS BS 65 on arrival. Patient given juice and sandwich. 16:10 Patient remains calm, AAOx3, with clear speech and steady gait throughout ED stay. Repeat BS is now 152. Patient is resting comfortably in chair. Plan is to discharge patient home. Disposition - Disposition Referrals: [facility] [Outside] Disposition: HOME/ ROUTINE Disposition Time: 16:12 Condition: STABLE Additional Instructions: return if worsened. Instructions: Alcohol Use - When Is Drinking a Problem? 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 - Scribe Statement The provider has reviewed the documentation as recorded by the Krystyna Fulton All medical record entries made by the Krystyna were at my direction and personally dictated by me. I have reviewed the chart and agree that the record accurately reflects my personal performance of the history, physical exam, medical decision making, and the department course for this patient. I have also personally directed, reviewed, and agree with the discharge instructions and disposition.
== END 2018-11-17 16:12 | disposition home or self-care (01) ==
LOC: C.ER 14:41
DX: F10.10 Alcohol abuse, uncomplicated (principal); I10 Essential (primary) hypertension; F32.9 Major depressive disorder, single episode, unspecified; Z72.0 Tobacco use

== ENCOUNTER 2019-01-18 15:52 | Emergency (ER) | payer SELFPAY ==
[2019-01-18 16:00] VITALS: BMI 27.3
[2019-01-18 16:55] VITALS: BP 189/89; PULSE 91; RESP 20; TEMP 98.2; O2SAT 96
--- NOTE | 2019-01-18 18:25 | C.PDOC ---
History Of Present Illness 53 year old male brought in by ambulance to the ED for public intoxication. Patient has had many prior visits for the same symptoms. Time Seen by Provider: 01/18/19 16:00 Chief Complaint (Nursing): Substance Abuse History Per: Patient History/Exam Limitations: intoxication Onset/Duration Of Symptoms: Hrs Current Symptoms Are (Timing): Still Present Suicide/Self Injury Attempted (Context): None Modifying Factor(s): Alcohol Past Medical History Reviewed: Historical Data, Nursing Documentation, Vital Signs Vital Signs: Last Vital Signs Temp 98.2 F 01/18/19 15:54 Pulse 91 H 01/18/19 15:54 Resp 20 01/18/19 15:54 BP 189/89 H 01/18/19 15:54 Pulse Ox 96 01/18/19 15:54 - Medical History PMH: Depression, HTN Denies: Chronic Kidney Disease Surgical History: No Surg Hx - [facility] Procedures ALCOHOL DETOXIFICATION (11/09/14) DETOXIFICATION SERVICES FOR SUBSTANCE ABUSE TREATMENT (03/18/16) TETANUS TOXOID ADMINIST (10/11/13) Family History: States: Unknown Family Hx - Social History Hx Tobacco Use: Yes Hx Alcohol Use: Yes Hx Substance Use: No - Immunization History Hx Tetanus Toxoid Vaccination: No (10/11/2013) Hx Influenza Vaccination: No Hx Pneumococcal Vaccination: No Review Of Systems Review Of Systems: ROS cannot be obtained secondary to pt's inabilty to answer questions. Physical Exam - Physical Exam Appears: Other (tall, thin, disheveled, foul-smelling, alcohol on breath) Skin: Normal Color, Warm, Dry Head: Atraumatic, Normacephalic Neck: Normal ROM, Supple Chest: Symmetrical, No Deformity Cardiovascular: Rhythm Regular, No Murmur Respiratory: No Accessory Muscle Use, No Rales, No Rhonchi, No Wheezing Gastrointestinal/Abdominal: Soft, No Tenderness ED Course And Treatment O2 Sat by Pulse Oximetry: 96 (in RA) Progress Note: Glucose POC ordered for patient. Pending sobriety. Patient eloped at 1825. Medical Decision Making Medical Decision Making: alcohol abuse eloped @ 1825 Disposition Doctor Will See Patient In The: Office Counseled Patient/Family Regarding: Studies Performed, Diagnosis - Disposition Referrals: Alcoholics Anonymous [Outside] [facility] [Outside] [facility] [Outside] [facility] [Outside] Disposition: HOME/ ROUTINE Disposition Time: 18:25 Condition: GOOD Additional Instructions: seek AA Instructions: Alcohol Use - When Is Drinking a Problem? Forms: [facility] (Puerto Rican) - Clinical Impression Clinical Impression: Alcohol abuse - Scribe Statement The provider has reviewed the documentation as recorded by the Scribe (Cami Rodriguez) All medical record entries made by the Scribe were at my direction and personally dictated by me. I have reviewed the chart and agree that the record accurately reflects my personal performance of the history, physical exam, medical decision making, and the department course for this patient. I have also personally directed, reviewed, and agree with the discharge instructions and disposition.
== END 2019-01-18 18:30 | disposition home or self-care (01) ==
LOC: C.ER 15:52
DX: F10.10 Alcohol abuse, uncomplicated (principal); I10 Essential (primary) hypertension; F32.9 Major depressive disorder, single episode, unspecified; Z72.0 Tobacco use

== ENCOUNTER 2019-01-26 00:34 | Emergency (ER) | payer SELFPAY ==
[2019-01-26 00:34] VITALS: BMI 27.3
--- NOTE | 2019-01-26 00:59 | C.PDOC ---
History Of Present Illness 53 year old male is brought to the ED by EMS for alcohol intoxication. Patient was found sleeping in the street intoxicated. Patient admits to drinking alcohol tonight. Patient denies SI/HI, hallucinations, other medical complaints. Time Seen by Provider: 01/26/19 00:47 Chief Complaint (Nursing): Altered Mental Status History Per: Patient, EMS History/Exam Limitations: Intoxication Onset/Duration Of Symptoms: Hrs Current Symptoms Are (Timing): Still Present Usual Baseline: Alert Oriented Exacerbating Factor(s): Alcohol Use Use Of Anticoag/Antiplatelets: No Recent travel outside of the [place]: No Additional History Per: Patient Past Medical History Reviewed: Historical Data, Nursing Documentation, Vital Signs Vital Signs: Last Vital Signs Temp 97.6 F 01/26/19 00:45 Pulse 84 01/26/19 00:45 Resp 14 01/26/19 00:45 BP 156/84 H 01/26/19 00:45 Pulse Ox 96 01/26/19 00:45 - Medical History PMH: Depression, HTN Denies: Chronic Kidney Disease Surgical History: No Surg Hx - [facility] Procedures ALCOHOL DETOXIFICATION (11/09/14) DETOXIFICATION SERVICES FOR SUBSTANCE ABUSE TREATMENT (03/18/16) TETANUS TOXOID ADMINIST (10/11/13) Family History: States: Unknown Family Hx - Social History Hx Tobacco Use: Yes Hx Alcohol Use: Yes Hx Substance Use: No - Immunization History Hx Tetanus Toxoid Vaccination: No (10/11/2013) Hx Influenza Vaccination: No Hx Pneumococcal Vaccination: No Review Of Systems Constitutional: Negative for: Fever, Chills Cardiovascular: Negative for: Chest Pain Respiratory: Negative for: Cough, Shortness of Breath Gastrointestinal: Negative for: Nausea, Vomiting, Abdominal Pain Skin: Negative for: Rash Psych: Negative for: Depression, Suicidal ideation Physical Exam - Physical Exam Appears: Non-toxic, No Acute Distress Skin: Normal Color, Warm, Dry Head: Normacephalic, Other (right occipiral area hematoma) Eye(s): bilateral: Normal Inspection, PERRL, EOMI Neck: Normal ROM, Supple Chest: Symmetrical Cardiovascular: Rhythm Regular Respiratory: Normal Breath Sounds, No Rales, No Rhonchi, No Wheezing Gastrointestinal/Abdominal: Soft, No Distention Extremity: Normal ROM, No Tenderness Neurological/Psych: Oriented x3, Normal Speech, Other (no acute intoxication, calm, cooperative) Gait: Steady ED Course And Treatment O2 Sat by Pulse Oximetry: 96 (ON RA) Pulse Ox Interpretation: Normal - CT Scan/US CT head Other Rad Studies (CT/US): Read By Radiologist, Radiology Report Reviewed CT/US Interpretation: CT of the head. Clinical history: left-sided injury. Protocol: Multiple axial CT images obtained with 5 mm slice thickness were obtained through the head without administration of contrast. Comparison: 08/03/2018. Findings: The ventricles and sulci are symmetric but prominent in size bilaterally. There are periventricular areas of low attenuation throughout the deep white matter. There is no evidence of acute hemorrhage or infarct. There is no midline shift, mass effect, or extra-axial fluid collection. The osseous structures are unremarkable. The visualized paranasal sinuses and mastoid air cells are clear. Impression: No acute hemorrhage or infarct. Findings are consistent with age-related atrophy and chronic small vessel is chemic disease. . Electronically signed on Jan 26, 2019 2:01:33 AM EDT by: Tal Marrero M.D., Certified by LUTHER, MSK, Neuroradiology. Reevaluation Time: 05:48 Reassessment Condition: Improved Disposition Counseled Patient/Family Regarding: Diagnosis, Need For Followup - Disposition Referrals: [facility] [Outside] [facility] [Outside] Disposition: HOME/ ROUTINE Disposition Time: 05:48 Condition: IMPROVED Instructions: Alcohol Abuse and Alcoholism (DC) Forms: [facility] (Arabic), General Discharge Instructions - Clinical Impression Clinical Impression: Alcohol abuse, Facial contusion - Scribe Statement The provider has reviewed the documentation as recorded by the Scribe Sam Thurston All medical record entries made by the Scribe were at my direction and personally dictated by me. I have reviewed the chart and agree that the record accurately reflects my personal performance of the history, physical exam, medical decision making, and the department course for this patient. I have also personally directed, reviewed, and agree with the discharge instructions and disposition.
[2019-01-26 06:15] VITALS: BP 110/73; PULSE 93; RESP 20; TEMP 98.7; O2SAT 98
--- NOTE | 2019-01-26 08:17 | CT ---
Date of service: 01/26/2019 PROCEDURE: CT HEAD WITHOUT CONTRAST. HISTORY: TRAUMA COMPARISON: 08/03/2018 TECHNIQUE: Axial computed tomography images were obtained through the head/brain without intravenous contrast. Radiation dose: Total exam DLP = 994.38 mGy-cm. This CT exam was performed using one or more of the following dose reduction techniques: Automated exposure control, adjustment of the mA and/or kV according to patient size, and/or use of iterative reconstruction technique. FINDINGS: HEMORRHAGE: No intracranial hemorrhage. BRAIN: No mass effect or edema. Scattered focal lucencies in the subcortical and periventricular white matter suggestive for chronic microvascular ischemic change. Persistent confluent low attenuation seen within the right frontal cortical and subcortical white matter suggestive for chronic ischemic change. Punctate lacunar infarct in the left external capsule. Diffuse generalized parenchymal atrophy. VENTRICLES: Unremarkable. No hydrocephalus. CALVARIUM: Chronic deformity of the right zygomatic arch and maxilla. This was noted on the prior study dated 08/03/2018. PARANASAL SINUSES: Chronic deformity of the right maxilla. Mild mucosal thickening and hypertrophy of the right maxilla. 4 millimeter mucosal retention cyst and or polyp in the left aspect of the sphenoid sinus. MASTOID AIR CELLS: Unremarkable as visualized. No inflammatory changes. OTHER FINDINGS: None. IMPRESSION: No acute intracranial abnormality. 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 Diffuse generalized parenchymal atrophy. Chronic microvascular ischemic change. Punctate lacunar infarct in the left external capsule. Chronic deformities of the right zygomatic arch and right maxilla. Mild sinus mucosal disease. If symptoms persists, consider correlation with MRI. A preliminary report was generated at 2:01 a.m. on 01/26/[address] Tal Marrero from [employer]
== END 2019-01-26 06:15 | disposition home or self-care (01) ==
LOC: C.ER 00:34
DX: S00.83XA Contusion of other part of head, initial encounter (principal); X58.XXXA Exposure to other specified factors, initial encounter; F10.10 Alcohol abuse, uncomplicated; I10 Essential (primary) hypertension; F32.9 Major depressive disorder, single episode, unspecified; F17.210 Nicotine dependence, cigarettes, uncomplicated